=== PATIENT | male | born 1955 | race Caucasian/White ===

== ENCOUNTER 2024-07-09 08:31 | Emergency (ER) | payer MEDICARE, SELFPAY ==
[2024-07-09 08:40] VITALS: BP 158/83; PULSE 69; RESP 18; TEMP 36.7; O2SAT 100; BMI 22.9
--- NOTE | 2024-07-09 08:40 | ECG_ITS ---
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 Measurements Intervals [place] Rate: 69 P: 72 WI: 202 QRS: 254 QRSD: 143 T: 51 QT: 405 QTc: 435 Interpretive Statements SINUS RHYTHM RIGHT AXIS DEVIATION [QRS AXIS > 100] RIGHT BUNDLE BRANCH BLOCK [120+ ms QRS DURATION, UPRIGHT V1, 40+ ms S IN I/aVL/V4/V5/V6] No previous ECG available for comparison Electronically Signed On 07-10-2024 10:25:24 HEALTHCARE OR MEDICAL by Tato Mcfarlane M.D. [email or web address]
--- NOTE | 2024-07-09 08:44 | XR_ITS ---
WS: [id number] Exam: XR chest 1V portable [id number] Date/Time of Exam: 07/09/2024 8:44 AM Reason For Exam: chest pain No priors. The lungs are fully expanded. No acute infiltrates. Normal cardiomediastinal silhouette and regional bony elements. 7.3 mm nodule is seen in the mid LEFT lung. Several calcified perihilar granulomas are noted. Recommendations: A nonemergent detailed PA and lateral chest radiograph would be recommended for furt her evaluation. Also any outside prior chest radiographs for comparison would be very helpful. XR/XR chest 1V portable [id number] IMPRESSION: 1. No acute cardiopulmonary finding. 2. 7.3 mm indeterminate nodule in the mid LEFT lung.
[2024-07-09 08:59] LABS: Basophils # 0.1 10^3/uL (0.0-0.1); Basophils % 0.9 %; Eosinophils # 0.1 10^3/uL (0.0-0.8); Eosinophils % 1.7 %; Hematocrit 45.7 % (37-53); Lymphocytes # 1.4 10^3/uL (0.8-4.8); Lymphocytes % 26.6 %; Mean Corpuscular HGB Conc 33.3 g/dL (30-55); Mean Corpuscular Hemoglobin 28.8 pg (27-33); Mean Corpuscular Volume 86.7 fl (82-101); Mean Platelet Volume 9.3 fL (7.4-10.4); Monocytes # 0.4 10^3/uL (0.2-0.9); Monocytes % 6.5 %; Neutrophils # 3.44 10^3/uL (1.8-7.7); Neutrophils % 63.9 %; Nucleated Red Blood Cells % 0 %; Platelet Count 232 10^3/cmm (157-399); Red Blood Count 5.27 10^6/uL (3.85-5.65); Red Cell Distribution Width 12.7 % (12.1-15.1); White Blood Count 5.38 10^3/uL (3.29-11.43)
[2024-07-09 09:17] LABS: Alanine Aminotransferase 12 U/L (0-41); Albumin Level 4.4 g/dL (3.5-5.2); Alkaline Phosphatase 60 U/L (40-130); Anion Gap 13.8 (5-19); Aspartate Amino Transferase 18 U/L (0-40); Blood Urea Nitrogen 16 mg/dL (8-23); Calcium 9.6 mg/dL (8.5-10.5); Carbon Dioxide 26 mmol/L (22-29); Chloride 104 mmol/L (98-107); Creatinine Clr Calc Pharmacy 73.8415; Glomerular Filtration Rate 74.5 mL/min (90-130); Glucose 118 mg/dL (65-115); Osmolality Calculated 292 mOsm/kg (285-295); Potassium 3.8 mmol/L (3.5-5.1); Sodium 140 mmol/L (136-145); Total Bilirubin 0.8 mg/dL (0.15-1.2); Total Protein 6.4 g/dL (6.6-8.7)
[2024-07-09 09:18] LABS: Troponin(5th) Baseline 12 ng/L (0-15)
--- NOTE | 2024-07-09 11:00 | ECG_ITS ---
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 Measurements Intervals [place] Rate: 57 P: 72 IA: 198 QRS: 263 QRSD: 144 T: 56 QT: 430 QTc: 421 Interpretive Statements SINUS BRADYCARDIA RIGHT AXIS DEVIATION [QRS AXIS > 100] RIGHT BUNDLE BRANCH BLOCK [120+ ms QRS DURATION, UPRIGHT V1, 40+ ms S IN I/aVL/V4/V5/V6] Compared to ECG 07/09/2024 08:40:23 Sinus rhythm no longer present Electronically Signed On 07-10-2024 10:36:11 READING PROFESSOR by Tato Mcfarlane M.D. [email or web address]
[2024-07-09 11:01] VITALS: BP 137/83; PULSE 63; RESP 18; O2SAT 99
--- NOTE | 2024-07-09 11:04 | ED_ITS ---
HPI - Chest Pain 2 General: Chief Complaint: Chest Pain Stated Complaint: feel heart skip beat, sore in chest area Time Seen by Provider: 07/09/24 10:58 History of Present Illness: 68-year-old male who presents the emerge ncy room with chest discomfort. He says he had episode of it today and yesterday. He is also concerned about pressure in his ear. He said he has been given medication for fluid behind his ear but it keeps coming back. Had some drainage into his throat. No pain at this time. He says he has having trouble with his esophagus. Related Data Previous Rx's Medication Instructions Recorded famotidine 40 mg tablet 40 mg PO DAILY #30 tabs 07/09/24 loratadine-pseudoephedrine ER 10 1 tab PO DAILY #30 tabs 07/09/24 mg-240 mg tablet,extended [id number] (Claritin-D 24 Hour) Allergies Allergy/AdvReac Type Severity Reaction Status Date / Time No Known Allergies Allergy Verified 07/09/24 08:43 Review of Systems 2 Narrative: Constitutional symptoms: Negative except as documented in HPI. Skin symptoms: Negative except as documented in HPI. Eye symptoms: Negative except as documented in HPI. ENMT symptoms: Negative except as documented in HPI. Respiratory symptoms: Negative except as documented in HPI. Cardiovascular symptoms: Negative except as documented in HPI. Gastrointestinal symptoms: Negative except as documented in HPI. Genitourinary symptoms: Negative except as documented in HPI. Musculoskeletal symptoms: Negative except as documented in HPI. Neurologic symptoms: Negative except as documented in HPI. Psychiatric symptoms: Negative except as documented in HPI. Endocrine symptoms: Negative except as documented in HPI. Physical Exam 2 Narrative: EXAM NARRATIVE: General: Alert, no acute distress. Skin: Warm, dry. Head: Normocephalic, atraumatic. Neck: Supple, trachea midline. Eye: Extraocular movements are intact. Ears, nose, mouth and throat: mucosa moist. Cardiovascular: Regular, Normal peripheral perfusion. Respiratory: Lungs are clear to auscultation, respirations are non-labored, breath sounds are equal, Symmetrical chest wall expansion. Gastrointestinal: Soft, Nontender, Non distended Musculoskeletal: Normal ROM, no deformity. Neurological: Alert and oriented, No focal neurological deficit observed. Psychiatric: Cooperative, appropriate mood & affect. Course 2 Vital Signs: Vital signs: Vital Signs Temperature 98.1 F 07/09/24 08:40 Pulse Rate 63 07/09/24 11:01 Respiratory Rate 18 07/09/24 11:01 Blood Pressure 137/83 07/09/24 11:01 Pulse Oximetry 99 07/09/24 11:01 Oxygen Delivery Me thod Room Air 07/09/24 11:01 MDM - Chest Pain Medical Decision Making Differential diagnosis for patient with chest pain includes but is not limited to and based on the above HPI, review of systems and physical exam: Pneumonia. unstable angina. angina. Acute coronary syndrome / [place]. Pulmonary embolism. Costochondritis / musculoskeletal. Pleurisy. Pericarditis. Esophageal spasm. Pancreatis. Cholecystitis. Orders placed to evaluate differential diagnosis based on the above differential, HPI and physical exam EKG: Time 1100. Rate 57. Sinus bradycardia. No ST-T changes, no ectopy, right bundle branch block, This was reviewed and interpreted by myself the ER physician at 1105 Chest x-ray: No acute process. No infiltrate. No pneumothorax. This was reviewed and interpreted by myself the emergency room physician. I also reviewed the radiology report. There is a left-sided pulmonary nodule and I discussed this with the patient and no need for follow-up. Lab Review: Laboratory results were reviewed and interpreted by myself the emergency room physician. No leukocytosis. No anemia. BUN and creatinine are normal. Glucose is mildly elevated. No history of diabetes. Serial troponins are negative HEART Pathway for Early Discharge in Acute Chest Pain from [place] on 07/09/2024 All calculations should be rechecked by clinician prior to use RESULT SUMMARY: 2 points HEART Pathway Score Low risk 0.9-1.7% 30-day MACE Repeat troponin at 2 hours and if negative, discharge home with outpatient follow-up. INPUTS: History ?> 0 = Slightly suspicious EKG ?> 0 = Normal Age ?> 2 = >=5 Risk factors ?> 0 = No known risk factors Initial troponin ?> 0 = <=ormal limit I reviewed the patient's medical record. No previous visits to [facility] Assessment and plan: Noncardiac chest pain Pulmonary nodule Dyspepsia Allergic symptoms/ear fullness -Home on famotidine and some Claritin-D for symptoms. Follow with his primary. ? Discharged home - Discussed findings and plan with patient. Answered any questions. - All laboratory values were reviewed and interpreted personally by myself, the ER physician - All imaging was reviewed and interpreted personally by myself, the ER physician. - Evaluation and treatment of this problem were appropriate in the emergency setting Lab Data 07/09/24 08:54 07/09/24 08:54 Radiology Impressions Chest X-Ray 07/09/24 08:44 IMPRESSION: 1. No acute cardiopulmonary finding. 2. 7.3 mm indeterminate nodule in the mid LEFT lung. Laboratory Results WBC 5.38 10^3/uL (3.29-11.43) 07/09/24 08:54 RBC 5.27 10^6/uL (3.85-5.65) 07/09/24 08:54 Hgb 15.20 g/dL (11.27-16.99) 07/09/24 08:54 Hct 45.7 % (37-53) 07/09/24 08:54 MCV 86.7 fl (82-101) 07/09/24 08:54 MCH 28.8 pg (27-33) 07/09/24 08:54 MCHC 33.3 g/dL (30-55) 07/09/24 08:54 RDW 12.7 % (12.1-15.1) 07/09/24 08:54 Plt Count 232 10^3/cmm (157-399) 07/09/24 08:54 MPV 9.3 fL (7.4-10.4) 07/09/24 08:54 Neut % (Auto) 63.9 % 07/09/24 08:54 Lymph % (Auto) 26.6 % 07/09/24 08:54 [place] % (Auto) 6.5 % 07/09/24 08:54 Eos % (Auto) 1.7 % 07/09/24 08:54 Baso % (Auto) 0.9 % 07/09/24 08:54 Neut # (Auto) 3.44 10^3/uL (1.8-7.7) 07/09/24 08:54 Lymph # (Auto) 1.4 10^3/uL (0.8-4.8) 07/09/24 08:54 [place] # (Auto) 0.4 10^3/uL (0.2-0.9) 07/09/24 08:54 Eos # (Auto) 0.1 10^3/uL (0.0-0.8) 07/09/24 08:54 Baso # (Auto) 0.1 10^3/uL (0.0-0.1) 07/09/24 08:54 Nucleated RBC % (auto) 0 % 07/09/24 08:54 Nucleated RBCs # 0.0 /100WBC 07/09/24 08:54 Sodium 140 mmol/L (136-145) 07/09/24 08:54 Potassium 3.8 mmol/L (3.5-5.1) 07/09/24 08:54 Chloride 104 mmol/L (98-107) 07/09/24 08:54 Carbon Dioxide 26 mmol/L (22-29) 07/09/24 08:54 Anion Gap 13.8 (5-19) 07/09/24 08:54 BUN 16 mg/dL (8-23) 07/09/24 08:54 Creatinine 1.0 mg/dL (0.7-1.2) 07/09/24 08:54 GFR Calculation 74.5 mL/min (90-130) L 07/09/24 08:54 Glucose 118 mg/dL (65-115) H 07/09/24 08:54 Calculated Osmolality 292 mOsm/kg (285-295) 07/09/24 08:54 Calcium 9.6 mg/dL (8.5-10.5) 07/09/24 08:54 Total Bilirubin 0.8 mg/dL (0.15-1.2) 07/09/24 08:54 AST 18 U/L (0-40) 07/09/24 08:54 ALT 12 U/L (0-41) 07/09/24 08:54 Alkaline Phosphatase 60 U/L (40-130) 07/09/24 08:54 Troponin T Baseline 12 ng/L (0-15) 07/09/24 08:54 Troponin T 120 Minute 10.66 ng/L (0-15) 07/09/24 11:00 Delta Troponin T -1.34 ABS# (0-10) L 07/09/24 11:00 Total Protein 6.4 g/dL (6.6-8.7) L 07/09/24 08:54 Albumin 4.4 g/dL (3.5-5.2) 07/09/24 08:54 Globulin 2.0 g/dL (1.3-4.6) 07/09/24 08:54 All radiology interpretation(s) finalized by discharge Clincial Decision Support The following clinical decision support tools were used to aid in care of the patient HEART Score -> History: Slightly Suspicous, EKG: Normal, Age: 65 or more yrs, Risk Factors: No Risk Factors Known, Troponin: Baseline Trop <16 ng/L. Resulting HEART Score: 2. Discharge Plan Discharge Patient Disposition: Home Clinical Impression: Non-cardiac chest pain, Pulmonary nodule, Dyspepsia Condition: Stable Prescriptions: New famotidine 40 mg tablet 40 mg PO DAILY Qty: 30 0RF Claritin-D 24 Hour 10-240 mg tablet extended release 24 hr 1 tab PO DAILY Qty: 30 0RF Discharge Orders: Discharge ED (Routine); Ordered 07/09/24 Ordered By: Asha Go Referrals: Fidelina Sterling FNP [Primary Care Provider] - Discharge Diet: Usual diet Discharge Activity: Increase activity as tolerated Patient Instructions: Noncardiac Chest Pain (ED), Opioid Safety, Pain Management Activity Restrictions/Additional Instructions: A pulmonary nodule was seen on imaging. This will need follow up imaging with your primary provider. Please schedule an appointment concerning this. Thank you for choosing [facility] for your healthcare needs today. Please realize this is an emergency room and that we are providing you with a medical screening exam and this may not be complete and all inclusive of all the testing and or work up that you may need to determine your ailment or severity of your illness. You have been screened and evaluated and felt safe for discharge. Health conditions do change or evolve sometimes and as such it is important that you follow up with your Primary Doctor to be re checked, 3-5 days is a general good time frame for follow up. You are always welcome to return to the ED for re assessment if your symptoms are worsening or you have new concerns Coding Level of Care Code ED Modeling Instructor for Ryan Parra
[2024-07-09 11:44] LABS: Troponin 5 2HR 10.66 ng/L (0-15); Troponin 5 2HR Delta -1.34 ABS# (0-10)
[2024-07-09 11:55] VITALS: BP 131/85; PULSE 55; O2SAT 100
== END 2024-07-09 11:56 | disposition home or self-care (01) ==
PROVIDERS: Physician Assistant; Emergency Provider Emergency Medicine; PCP Nurse Practitioner Family
DX: R07.89 Other chest pain (principal); R91.1 Solitary pulmonary nodule; R10.13 Epigastric pain
CPT/HCPCS: 71045; 80053; 84484; 85025; 93005; 99285

== ENCOUNTER 2024-10-14 10:54 | Outpatient (CLI) | payer MEDICARE, SELFPAY ==
--- NOTE | 2024-10-14 10:59 | US_ITS ---
WS: [id number] RIGHT UPPER QUADRANT ULTRASOUND HISTORY: ABDOMINAL COLIC COMPARISON: None available. Liver: 14.3 cm in length. Normal size liver and echogenicity. No bile duct dilatation or mass. Portal Vein: Normal hepatopetal flow with monophasic waveform. Gallbladder: Normal gallbladder. Increased echogenicity adjacent to the gallbladder is GI tract. No gallbladder wall thickening. CBD: 0.3 cm Pancreas: Completely obscured by bowel gas. Right kidney: 10.6 cm in length. Normal size and echogenicity. No hydronephrosis or mass. Aorta and IVC: Unremarkable abdominal aorta and IVC. No ascites. US/US gall bladder [id number] IMPRESSION: 1. Negative gallbladder. 2. No intrahepatic duct dilatation. 3. Pancreas is completely obscured by bowel gas.
== END 2024-10-14 10:55 | disposition home or self-care (01) ==
LOC: RAD 10:55
PROVIDERS: PCP Family Medicine; Visit Provider Family Medicine
DX: R10.84 Generalized abdominal pain (principal)
CPT/HCPCS: 76705